=== PATIENT | female | born 1990 | race Caucasian/White ===

== ENCOUNTER 2023-03-18 10:25 | Outpatient (CLI) | payer OTHER ==
[2023-03-18] MEDS ORDERED: Iopamidol 300 61% 100 ML VIAL FS ONE (11:20)
== END 2023-03-18 10:26 | disposition home or self-care (01) ==
LOC: CSHRAD 10:25
PROVIDERS: ATTEND Advanced Practice Midwife
DX: Z31.89 Encounter for other procreative management (principal); Z78.9 Other specified health status
CPT/HCPCS: 58340; 74740; Q9967